=== PATIENT | female | born 1960 | race African-American/Black ===

== ENCOUNTER 2022-06-25 23:44 | Emergency (ER) | payer BC, OTHER ==
[~2022-06-25] VITALS: Ht 185.4 cm; Wt 80.0 kg
[2022-06-26] MEDS ORDERED: MORPHINE SULFATE 4 MG/ML SYR/VIAL IV ONE ×2 (00:45→05:15)
[2022-06-26] MEDS ORDERED: SODIUM CHLORIDE 0.9% 1,000 ML IV ONE (00:45)
[2022-06-26] MEDS ORDERED: ONDANSETRON HCL 4 MG/2 ML VIAL IV ONE ×3 (00:45→08:15)
[2022-06-26 01:23] LABS: Basophils # (auto) 0.1 10 ^3/uL (0-0.2); Basophils % (auto) 1.5 % (0.0-2.0); Eosinophils # (auto) 0.2 10 ^3/uL (0-0.8); Eosinophils % (auto) 2.7 % (0.0-7.0); Hematocrit 36.3 % (36.0-46.0); Hemoglobin 12.6 g/dL (12.2-16.2); Lymphocytes # (auto) 2.4 10 ^3/uL (0.4-5.4); Lymphocytes % (auto) 33.1 % (10.0-50.0); Mean Corpuscular Hemoglobin 30.9 pg (28.0-32.0); Mean Corpuscular Hgb Conc. 34.8 g/dL (32.0-36.0); Monocytes # (auto) 0.6 10 ^3/uL (0-1.3); Monocytes % (auto) 8.9 % (0.0-12.0); Neutrophils # (auto) 3.9 10 ^3/uL (1.6-8.6); Neutrophils % (auto) 53.8 % (37.0-80.0); Red Blood Cells 4.07 10^6/uL (4.0-5.20); Red Cell Distribution Width 13.6 % (11.8-14.3); White Blood Cell 7.2 10^3/uL (4.4-10.8)
[2022-06-26 01:41] LABS: Urine Bacteria FEW /hpf (None Seen); Urine Blood Negative /uL (Negative); Urine Hyaline Cast FEW /lpf (0 - 2); Urine Mucus FEW (None Seen); Urine WBC 1 /hpf (0 - 5)
[2022-06-26 01:42] LABS: Albumin 3.5 g/dL (3.4-5.0); BUN/Creatinine Ratio 28.3 (10.0-20.0); Potassium 3.8 mmol/L (3.5-5.1)
[2022-06-26 01:45] LABS: Bilirubin, Total 0.3 mg/dL (0.2-1.0); Total Protein 6.7 g/dL (6.4-8.2)
[2022-06-26] MEDS ORDERED: KETOROLAC TROMETH 30 MG/ML 1ML VIAL IV ONE (08:15)
[2022-06-26] MEDS ORDERED: HYDROmorphone HCL 2 MG/ML VL/or syr IM ONE (09:45)
[2022-06-26] MEDS ORDERED: ONDA-144 PO ×2 (10:20)
[2022-06-26 10:32] VITALS: BP 129/94
== END 2022-06-26 09:08 | disposition home or self-care (01) ==
LOC: ER 23:44 → EDBD 23:44 → ER 06-26 09:08
DX: R79.89 Other specified abnormal findings of blood chemistry (principal); R10.84 Generalized abdominal pain; E86.0 Dehydration; J45.909 Unspecified asthma, uncomplicated; Z90.710 Acquired absence of both cervix and uterus; Z88.6 Allergy status to analgesic agent
CPT/HCPCS: 36415; 71045; 74176; 80053; 81001; 83690; 84484; 85025; 93005; 96361; 96372; 96374; 96375; 96376; 99285; J1170; J1885; J2270; J2405; J7030

== ENCOUNTER 2022-06-29 01:35 | Inpatient (IN) | payer BC ==
[~2022-06-29] VITALS: Ht 185.4 cm; Wt 82.3 kg
[~2022-06-29 01:35] MED LIST: ONDA-144 PO
[2022-06-29] MEDS ORDERED: ONDANSETRON HCL 4 MG/2 ML VIAL IV ONE ×2 (02:00→06:15)
[2022-06-29] MEDS ORDERED: MORPHINE SULFATE 4 MG/ML SYR/VIAL IV ONE (02:00)
[2022-06-29 03:00] LABS: Basophils # (auto) 0.1 10 ^3/uL (0-0.2); Eosinophils # (auto) 0.3 10 ^3/uL (0-0.8); Eosinophils % (auto) 4.2 % (0.0-7.0); Hemoglobin 12.9 g/dL (12.2-16.2); Lymphocytes # (auto) 2.9 10 ^3/uL (0.4-5.4); Lymphocytes % (auto) 42.1 % (10.0-50.0); Mean Corpuscular Hemoglobin 30.4 pg (28.0-32.0); Mean Corpuscular Hgb Conc. 33.9 g/dL (32.0-36.0); Mean Corpuscular Volume 89.7 fL (80.0-100.0); Monocytes # (auto) 0.8 10 ^3/uL (0-1.3); Monocytes % (auto) 11.5 % (0.0-12.0); Neutrophils # (auto) 2.8 10 ^3/uL (1.6-8.6); Neutrophils % (auto) 41.2 % (37.0-80.0); Nucleated Red Blood Cells % 0.1 %; Red Blood Cells 4.23 10^6/uL (4.0-5.20); Red Cell Distribution Width 13.8 % (11.8-14.3); White Blood Cell 6.9 10^3/uL (4.4-10.8)
[2022-06-29 03:17] LABS: INR 0.95 (0.9-1.15); Partial Thromboplastin Time 27.4 sec (24.6-33.4)
[2022-06-29 03:20] LABS: Albumin 3.2 g/dL (3.4-5.0); BUN/Creatinine Ratio 16.9 (10.0-20.0); Calcium 9.3 mg/dL (8.5-10.1); Potassium 4.2 mmol/L (3.5-5.1)
[2022-06-29 03:23] LABS: Bilirubin, Total 0.2 mg/dL (0.2-1.0); Total Protein 6.3 g/dL (6.4-8.2)
[2022-06-29] MEDS ORDERED: CIPROFLOXACIN 400MG/200ML 200 ML IV ONE (06:15)
[2022-06-29] MEDS ORDERED: SODIUM CHLORIDE 0.9% 1,000 ML IV ONE (06:15)
[2022-06-29] MEDS ORDERED: metroNIDAZOLE 500MG/100ML 100 ML IV ONE (06:15)
[2022-06-29] MEDS ORDERED: HYDROmorphone HCL 2 MG/ML VL/or syr IV ONE (06:15)
[2022-06-29 09:58] LABS: Cholesterol 201 mg/dL (< 200)
[2022-06-29 10:00] LABS: HDL Cholesterol 57 mg/dL (40-59); LDL Cholesterol 126 mg/dL (< 100); Triglycerides 82 mg/dL (< 150)
[2022-06-29] MEDS ORDERED: PANTOPRAZOLE 40 MG/10 ML VIAL INJ IV ONE (10:00)
[2022-06-29] MEDS: ENOXAPARIN SOD 40 MG/0.4 ML SYRINGE SC SCH (11:07)
[2022-06-29 11:15] LABS: INR 0.98 (0.9-1.15); Partial Thromboplastin Time 28.2 sec (24.6-33.4)
[2022-06-29] MEDS: LACTATED RINGER'S 1,000 ML IV SCH ×2 (11:41→18:00)
[2022-06-29] MEDS: MORPHINE SULFATE INJ 2 MG/ml SYRG IV PRN ×2 (11:42→19:40)
[2022-06-29] MEDS: ONDANSETRON HCL 4 MG/2 ML VIAL IV PRN ×2 (11:42→19:18)
[2022-06-29 15:27] LABS: Urine Bacteria NONE SEEN /hpf (None Seen); Urine Blood Negative /uL (Negative); Urine Specific Gravity 1.016 (1.001-1.035); Urine WBC <1 /hpf (0 - 5)
[2022-06-29] MEDS ORDERED: FLUT1AER12 (19:05)
[2022-06-29] MEDS ORDERED: ONDA-155 (19:05)
[2022-06-29] MEDS ORDERED: ALBUAER3 (19:05)
[2022-06-29] MEDS ORDERED: OMEP-260 PO (19:05)
[2022-06-29 22:09] VITALS: BP 145/62
[2022-06-30] MEDS: LACTATED RINGER'S 1,000 ML IV SCH ×3 (02:00→14:52)
[2022-06-30] MEDS: ONDANSETRON HCL 4 MG/2 ML VIAL IV PRN ×4 (03:37→19:57)
[2022-06-30] MEDS: MORPHINE SULFATE INJ 2 MG/ml SYRG IV PRN ×4 (03:37→19:56)
[2022-06-30 04:44] VITALS: BP 136/71
[2022-06-30 06:30] LABS: Basophils # (auto) 0 10 ^3/uL (0-0.2); Basophils % (auto) 0.4 % (0.0-2.0); Eosinophils # (auto) 0.3 10 ^3/uL (0-0.8); Eosinophils % (auto) 4.9 % (0.0-7.0); Hematocrit 37.3 % (36.0-46.0); Hemoglobin 12.7 g/dL (12.2-16.2); Lymphocytes # (auto) 2.1 10 ^3/uL (0.4-5.4); Lymphocytes % (auto) 38.3 % (10.0-50.0); Mean Corpuscular Hemoglobin 30.7 pg (28.0-32.0); Mean Corpuscular Volume 90.3 fL (80.0-100.0); Monocytes # (auto) 0.6 10 ^3/uL (0-1.3); Monocytes % (auto) 10.8 % (0.0-12.0); Neutrophils # (auto) 2.5 10 ^3/uL (1.6-8.6); Neutrophils % (auto) 45.6 % (37.0-80.0); Nucleated Red Blood Cells % 0.2 %; Red Blood Cells 4.14 10^6/uL (4.0-5.20); Red Cell Distribution Width 13.6 % (11.8-14.3); White Blood Cell 5.5 10^3/uL (4.4-10.8)
[2022-06-30 06:46] LABS: Albumin 3.1 g/dL (3.4-5.0); Potassium 3.9 mmol/L (3.5-5.1)
[2022-06-30 06:51] LABS: BUN/Creatinine Ratio 12.8 (10.0-20.0); Bilirubin, Total 0.4 mg/dL (0.2-1.0); Total Protein 6.2 g/dL (6.4-8.2)
[2022-06-30] MEDS: ENOXAPARIN SOD 40 MG/0.4 ML SYRINGE SC SCH (08:19)
[2022-06-30 09:00] VITALS: BP 142/67
[2022-06-30] MEDS ORDERED: PANTOPRAZOLE 40 MG/10 ML VIAL INJ IV SCH (10:00)
[2022-06-30 13:00] VITALS: BP 135/69
[2022-06-30 16:34] VITALS: BP 149/84
[2022-06-30] MEDS ORDERED: HYOSCYAMINE SULF 0.125 MG ODT TAB PO SCH (18:00)
[2022-06-30] MEDS: DICYCLOMINE HCL 10 MG CAP PO SCH ×2 (19:11→21:24)
[2022-06-30 22:00] VITALS: BP 160/79
[2022-07-01] MEDS: ONDANSETRON HCL 4 MG/2 ML VIAL IV PRN ×6 (00:02→23:46)
[2022-07-01] MEDS: MORPHINE SULFATE INJ 2 MG/ml SYRG IV PRN ×6 (00:04→23:50)
[2022-07-01 05:00] VITALS: BP 140/67
[2022-07-01] MEDS: LACTATED RINGER'S 1,000 ML IV SCH ×2 (05:16→09:43)
[2022-07-01] MEDS: DICYCLOMINE HCL 10 MG CAP PO SCH ×4 (05:47→23:24)
[2022-07-01 09:00] VITALS: BP 112/75
[2022-07-01] MEDS: PANTOPRAZOLE 40 MG TAB PO SCH (09:28)
[2022-07-01] MEDS: ENOXAPARIN SOD 40 MG/0.4 ML SYRINGE SC SCH (09:29)
[2022-07-01 12:16] LABS: Hepatitis C Antibody Negative (Negative)
[2022-07-01 13:00] VITALS: BP 120/82
[2022-07-01 17:00] VITALS: BP 126/77
[2022-07-01 22:00] VITALS: BP 122/61
[2022-07-02 05:00] VITALS: BP 140/74
[2022-07-02] MEDS: DICYCLOMINE HCL 10 MG CAP PO SCH ×2 (06:54→12:16)
[2022-07-02] MEDS: MORPHINE SULFATE INJ 2 MG/ml SYRG IV PRN ×3 (06:55→17:08)
[2022-07-02] MEDS: ONDANSETRON HCL 4 MG/2 ML VIAL IV PRN ×3 (06:55→17:00)
[2022-07-02 08:35] VITALS: BP 126/60
[2022-07-02] MEDS: PANTOPRAZOLE 40 MG TAB PO SCH (11:10)
[2022-07-02] MEDS: ENOXAPARIN SOD 40 MG/0.4 ML SYRINGE SC SCH (11:11)
[2022-07-02 13:00] VITALS: BP 121/64
[2022-07-02] MEDS ORDERED: OMEP-260 PO (13:23)
[2022-07-02] MEDS ORDERED: DICY10CA PO (13:23)
[2022-07-02] MEDS ORDERED: ONDA-155 PO (13:23)
[2022-07-02 14:45] VITALS: BP 121/64
[2022-07-02] MEDS ORDERED: HYDR-4902 PO (15:31)
[2022-07-02] MEDS ORDERED: NALO4SPR2 (15:31)
[2022-07-02 16:51] VITALS: BP 131/61
[2022-07-02 17:38] VITALS: BP 134/79
== END 2022-07-02 19:55 | disposition home or self-care (01) | DRG 392 ==
LOC: EDUNIT# 01:35 → ER 01:35 → EDBD 01:35 → OVERFLOW 10:00 → WEST WING 16:57
PROVIDERS: ADMIT Registered Nurse; ATTEND Hospitalist
DX: K29.70 Gastritis, unspecified, without bleeding (principal); R64 Cachexia; K57.30 Diverticulosis of large intestine without perforation or abscess without bleeding; E86.0 Dehydration; G89.29 Other chronic pain; J45.909 Unspecified asthma, uncomplicated; K58.9 Irritable bowel syndrome, unspecified; R73.03 Prediabetes; Z20.822 Contact with and (suspected) exposure to COVID-19; Z68.23 Body mass index [BMI] 23.0-23.9, adult; Z80.0 Family history of malignant neoplasm of digestive organs; Z82.49 Family history of ischemic heart disease and other diseases of the circulatory system; Z88.6 Allergy status to analgesic agent; Z90.710 Acquired absence of both cervix and uterus
CPT/HCPCS: 36415; 71045; 72195; 74176; 74181; 80053; 80061; 81001; 82105; 82232; 82270; 82378; 83036; 83615; 83690; 83735; 84443; 84484; 85025; 85610; 85730; 86300; 86301; 86304; 86803; 87045; 87086; 87177; 87340; 87426; 87427; 93005; 96365; 96366; 96372; 96375; 96376; C9113; G0378; J2405; J3490

== ENCOUNTER 2022-07-14 09:23 | Emergency (ER) | payer BC ==
[~2022-07-14] VITALS: Ht 172.7 cm; Wt 75.0 kg
[~2022-07-14 09:23] MED LIST changes: +ALBUAER3; +DICY10CA PO; +FLUT1AER12; +HYDR-4902 PO; +NALO4SPR2; +OMEP-260 PO; -ONDA-144 PO; +ONDA-155 PO
[2022-07-14 09:25] VITALS: BP 137/98
[2022-07-14] MEDS ORDERED: LIDOCAINE VISCOUS 2% 15ML UD PO ONE (10:45)
[2022-07-14] MEDS ORDERED: MAALOX PLUS or MAALOX 30 ML PO ONE (10:45)
[2022-07-14] MEDS ORDERED: METOCLOPRAMIDE HCL 5MG/ml INJ 2ml VIAL IV ONE (10:45)
[2022-07-14] MEDS ORDERED: FAMOTIDINE (10MG/ML) 2ML VL IV ONE (10:45)
[2022-07-14] MEDS ORDERED: LACTATED RINGER'S 1,000 ML IV ONE (10:45)
[2022-07-14 10:52] LABS: Basophils # (auto) 0 10 ^3/uL (0-0.2); Basophils % (auto) 0.7 % (0.0-2.0); Eosinophils # (auto) 0.3 10 ^3/uL (0-0.8); Eosinophils % (auto) 4.5 % (0.0-7.0); Hematocrit 42.7 % (36.0-46.0); Hemoglobin 14.2 g/dL (12.2-16.2); Lymphocytes # (auto) 2.5 10 ^3/uL (0.4-5.4); Lymphocytes % (auto) 36.6 % (10.0-50.0); Mean Corpuscular Hemoglobin 30.3 pg (28.0-32.0); Mean Corpuscular Hgb Conc. 33.2 g/dL (32.0-36.0); Mean Corpuscular Volume 91.3 fL (80.0-100.0); Monocytes # (auto) 0.6 10 ^3/uL (0-1.3); Monocytes % (auto) 8.4 % (0.0-12.0); Neutrophils # (auto) 3.4 10 ^3/uL (1.6-8.6); Neutrophils % (auto) 49.8 % (37.0-80.0); Nucleated Red Blood Cells % 0.1 %; Red Blood Cells 4.67 10^6/uL (4.0-5.20); Red Cell Distribution Width 13.9 % (11.8-14.3); White Blood Cell 6.9 10^3/uL (4.4-10.8)
[2022-07-14 11:12] LABS: Albumin 3.7 g/dL (3.4-5.0); Calcium 9.3 mg/dL (8.5-10.1); Potassium 4.1 mmol/L (3.5-5.1)
[2022-07-14 11:13] LABS: Urine Bacteria NONE SEEN /hpf (None Seen); Urine Blood Negative /uL (Negative); Urine Mucus FEW (None Seen); Urine Specific Gravity 1.024 (1.001-1.035); Urine WBC 2 /hpf (0 - 5)
[2022-07-14 11:15] LABS: BUN/Creatinine Ratio 22.2 (10.0-20.0); Bilirubin, Total 0.3 mg/dL (0.2-1.0); Total Protein 7.4 g/dL (6.4-8.2)
[2022-07-14] MEDS ORDERED: KETOROLAC TROMETH 30 MG/ML 1ML VIAL IV ONE (13:30)
== END 2022-07-14 14:27 | disposition left against medical advice (07) ==
LOC: ER 09:23 → EDBD 09:23 → ER 14:27
DX: R10.84 Generalized abdominal pain (principal); J45.909 Unspecified asthma, uncomplicated; Z88.2 Allergy status to sulfonamides; Z88.5 Allergy status to narcotic agent; Z88.6 Allergy status to analgesic agent; Z79.899 Other long term (current) drug therapy; Z90.710 Acquired absence of both cervix and uterus
CPT/HCPCS: 36415; 80053; 81001; 83690; 85025

== ENCOUNTER → 2022-07-21 | Emergency (ER) | payer BC ==
[~2022-07-21] VITALS: Ht 185.4 cm; Wt 77.0 kg
[~2022-07-21] MED LIST changes: +NITROGLYCERIN 0.4 MG SL TAB SL ONE
[2022-07-21 11:29] LABS: Urine WBC None Seen /hpf (0 - 5)
[2022-07-21 11:40] VITALS: BP 139/81
[2022-07-21 13:12] LABS: Urine Bacteria NONE SEEN /hpf (None Seen); Urine Blood Negative /uL (Negative); Urine Mucus FEW (None Seen)
== END | disposition left against medical advice (07) ==
LOC: ER 10:59
DX: R10.9 Unspecified abdominal pain (principal); R19.7 Diarrhea, unspecified; R11.2 Nausea with vomiting, unspecified; Z53.21 Procedure and treatment not carried out due to patient leaving prior to being seen by health care provider
CPT/HCPCS: 81001